=== PATIENT | female | born 1990 | race Caucasian/White ===

== ENCOUNTER → 2016-05-25 | Outpatient (CLI) | payer BC ==
[2016-05-25 17:37] LABS: FREE T4 0.97 NG/DL (0.76-1.46)
== END ==
LOC: M WUC 12:06
PROVIDERS: ATTEND Physician Assistant Medical
DX: F41.9 Anxiety disorder, unspecified (principal)

== ENCOUNTER → 2016-06-05 | Outpatient (REF) | payer BC | LOC: M LAB REF 09:00 | PROVIDERS: ATTEND Emergency Medicine | DX: D22.5 Melanocytic nevi of trunk (principal) ==

== ENCOUNTER → 2017-10-14 | Outpatient (REF) | payer BC ==
[2017-10-14 21:25] LABS: CHLAMYDIA DNA AMPLIFICATION NEGATIVE (NEGATIVE); GC DNA AMPLIFICATION NEGATIVE (NEGATIVE)
[2017-10-19 14:16] LABS: HPV HYBRID CAPTURE II Negative (Negative)
== END ==
LOC: M LAB REF 16:58
DX: R30.0 Dysuria (principal); R10.2 Pelvic and perineal pain
CPT/HCPCS: 87186

== ENCOUNTER → 2017-12-16 | Outpatient (CLI) | payer BC | LOC: M RAD 06:06 | DX: Z32.01 Encounter for pregnancy test, result positive (principal); N83.11 Corpus luteum cyst of right ovary | CPT/HCPCS: 76801 ==

== ENCOUNTER → 2017-12-16 | Outpatient (REF) | payer BC ==
[2017-12-16 16:34] LABS: CONTROL LINE HCG INT CTR LINE PRESENT; HCG, SERUM QUALITATIVE POSITIVE (NEGATIVE)
[2017-12-16 16:46] LABS: HCG, SERUM QUANTITATIVE 638 MIU/ML
== END ==
LOC: M LAB REF 16:11
DX: Z32.00 Encounter for pregnancy test, result unknown (principal)
CPT/HCPCS: 84703

== ENCOUNTER → 2017-12-18 | Outpatient (CLI) | payer BC ==
[2017-12-18 14:03] LABS: HCG, SERUM QUANTITATIVE 1385 MIU/ML
== END ==
LOC: M LAB 12:46
DX: O36.80X0 Pregnancy with inconclusive fetal viability, not applicable or unspecified (principal)
CPT/HCPCS: 84702

== ENCOUNTER → 2017-12-22 | Outpatient (REF) | payer BC ==
[2017-12-22 19:50] LABS: HCG, SERUM QUANTITATIVE 3100 MIU/ML
== END ==
LOC: M LAB REF 17:24
DX: O36.80X0 Pregnancy with inconclusive fetal viability, not applicable or unspecified (principal)
CPT/HCPCS: 84702

== ENCOUNTER → 2018-02-17 | Outpatient (REF) | payer BC ==
[2018-02-17 18:38] LABS: HEMATOCRIT 37.8 % (36.0-47.0); HEMOGLOBIN 12.7 g/dl (12.0-15.5); MEAN CORPUSCULAR HGB CONC 33.6 g/dl (32.0-36.5); MEAN CORPUSCULAR VOLUME 95.2 fl (80.0-96.0); PLATELET COUNT, AUTOMATED 326 10^3/uL (150-450); RED BLOOD COUNT 3.97 10^6/uL (4.00-5.40); RED CELL DISTRIBUTION WIDTH 11.3 % (11.5-14.5)
[2018-02-18 13:53] LABS: HBsAg Prenatal NEGATIVE (NEGATIVE); HIV SCREEN CENTAUR SOURCE NEGATIVE (NEGATIVE); RUBELLA IgG QUALITATIVE IMMUNE (IMMUNE)
[2018-02-18 13:53] LABS: HEPATITIS C VIRUS ABY INDEX < 0.0 INDEX (<0.8)
== END ==
LOC: M LAB REF 16:51
DX: Z34.82 Encounter for supervision of other normal pregnancy, second trimester (principal); Z36.89 Encounter for other specified antenatal screening
CPT/HCPCS: 86803

== ENCOUNTER → 2018-04-07 | Outpatient (REF) | payer BC ==
[2018-04-07 14:21] LABS: AMORPHOUS SEDIMENT SMALL (NEGATIVE); APPEARANCE, URINE CLEAR (CLEAR); BACTERIA, URINE AUTO NEGATIVE (NEGATIVE); BILIRUBIN, URINE AUTO NEGATIVE (NEGATIVE); BLOOD, URINE BLOOD NEGATIVE (NEGATIVE); COLOR, URINE YELLOW (YELLOW); GLUCOSE, URINE (UA) AUTO NEGATIVE (NEGATIVE); KETONE, URINE AUTO NEGATIVE (NEGATIVE); LEUKOCYTE ESTERASE, URINE AUTO 3+ (NEGATIVE); MUCUS, URINE SMALL (NEGATIVE); NITRITE, URINE AUTO NEGATIVE (NEGATIVE); PROTEIN, URINE AUTO NEGATIVE (NEGATIVE); RBC, URINE AUTO 1 /HPF (0-3); SQUAMOUS EPITHELIAL CELL UR AU 2 /HPF (0-6); UROBILINOGEN, URINE AUTO 0.2 mg/dL (0.0-2.0); WBC, URINE AUTO 8 /HPF (0-3)
== END ==
LOC: M LAB REF 13:35
DX: N39.0 Urinary tract infection, site not specified (principal)
CPT/HCPCS: 81001

== ENCOUNTER → 2018-06-03 | Outpatient (CLI) | payer BC ==
[2018-06-03 16:49] LABS: HEMATOCRIT 36.9 % (36.0-47.0); HEMOGLOBIN 12.4 g/dl (12.0-15.5); MEAN CORPUSCULAR HEMOGLOBIN 32.7 pg (27.0-33.0); MEAN CORPUSCULAR HGB CONC 33.6 g/dl (32.0-36.5); MEAN CORPUSCULAR VOLUME 97.4 fl (80.0-96.0); PLATELET COUNT, AUTOMATED 321 10^3/uL (150-450); RED BLOOD COUNT 3.79 10^6/uL (4.00-5.40); WHITE BLOOD COUNT 10.9 10^3/uL (4.0-10.0)
== END ==
LOC: M LAB 14:36
PROVIDERS: ATTEND Obstetrics & Gynecology
DX: Z34.02 Encounter for supervision of normal first pregnancy, second trimester (principal); Z3A.00 Weeks of gestation of pregnancy not specified

== ENCOUNTER → 2018-07-22 | Outpatient (REF) | payer BC | LOC: M LAB REF 14:11 | PROVIDERS: ATTEND Nurse Practitioner Women's Health | DX: Z34.83 Encounter for supervision of other normal pregnancy, third trimester (principal); Z36.85 Encounter for antenatal screening for Streptococcus B ==

== ENCOUNTER 2018-08-19 00:08 | Inpatient (IN) | payer BC ==
[~2018-08-19] VITALS: Ht 152.4 cm; Wt 62.3 kg
[2018-08-19] VITALS (35 sets, daily range): BP systolic 89–146; BP diastolic 50–102
[2018-08-19 01:41] LABS: HEMATOCRIT 38.3 % (36.0-47.0); MEAN CORPUSCULAR HEMOGLOBIN 32.5 pg (27.0-33.0); MEAN CORPUSCULAR HGB CONC 33.9 g/dl (32.0-36.5); MEAN CORPUSCULAR VOLUME 95.8 fl (80.0-96.0); PLATELET COUNT, AUTOMATED 287 10^3/uL (150-450); WHITE BLOOD COUNT 12.5 10^3/uL (4.0-10.0)
[2018-08-19] MEDS ORDERED: LACTATED RINGER'S 1000 ML IV STA (02:01)
[2018-08-19] MEDS ORDERED: LR 1,000 ML IV SCH (02:01)
[2018-08-19] MEDS ORDERED: PRENTAB9 PO (03:28)
[2018-08-19] MEDS ORDERED: OXYTOCIN 30 UNITS IN 0.9% NaCl 500ML IV BAG (J2590) As Ordered ONE (03:29)
[2018-08-19] MEDS ORDERED: OXYTOCIN DRIP 30 UNITS in APPROPRIATE DILUENT 1 EA IV SCH ×2 (03:30→10:19)
[2018-08-19] MEDS ORDERED: FENTANYL 2MCG/ML ROPIVACAINE 0.2% IN 0.9% NACL 100ML IVBAG As Ordered ONE (04:32)
[2018-08-19] MEDS ORDERED: ePHEDrine SULFATE 25 MG/5 ML(5MG/ML) SYRINGE As Ordered ONE (06:03)
[2018-08-19] MEDS: ePHEDrine SULFATE 25 MG/5 ML(5MG/ML) SYRINGE IV PRN ×3 (06:06→08:30)
[2018-08-19] MEDS ORDERED: ONDANSETRON 4MG/2ML VIAL (J2405) IV PRN (06:15)
[2018-08-19] MEDS ORDERED: EPIDURAL/PCA KEYS XX PRN (06:15)
[2018-08-19] MEDS ORDERED: LACTATED RINGER'S 1000 ML IV PRN ×2 (06:15→09:45)
[2018-08-19] MEDS ORDERED: REFRIGERATOR IV KEYS XX PRN (06:15)
[2018-08-19] MEDS ORDERED: diphenhydrAMINE INJ 50MG/ML VIAL (J1200) IV PRN (06:15)
[2018-08-19] MEDS ORDERED: FENTANYL/ROPIVACAINE/NACL BAG 100 ML EPIDURAL SCH (06:15)
[2018-08-19] MEDS ORDERED: NALOXONE INJ 0.4 MG/1 ML VIAL (J2310) IV PRN (06:15)
[2018-08-19] MEDS ORDERED: EPIDURAL COMMENT XX SCH (06:15)
--- NOTE | 2018-08-19 07:12 | HPE ---
DATE OF ADMISSION: 08/19/2018 Guerda is a 27-year-old female 1, para 0 with an estimated date of confinement (EDC) of 08/25/2018, estimated gestational age (EGA) 39-2/7 weeks gestation who presented to labor and delivery with complaint of gross rupture of membranes. Upon evaluation in labor and delivery she was found to be grossly ruptured with irregular contractions. No bleeding. Her records were reviewed which were essentially unremarkable. She did initiate care approximately 7 weeks gestation. Her lab blood type is O positive. Rubella immune. Hepatitis negative. HIV negative. GC and chlamydia negative. 1-hour sugar testing was within normal limits. Her Group B Streptococcus (GBS) is negative. PAST MEDICAL HISTORY: Denies. PAST SURGICAL HISTORY: The patient had vaginal surgery at age 12. SOCIAL HISTORY: She is an [employer]. She denies any alcohol, drug or cigarette smoking. FAMILY HISTORY: Significant for breast cancer. Cardiovascular disease. MEDICATIONS: - vitamins ALLERGIES: No known drug allergies. PHYSICAL EXAMINATION: Normal-appearing female in no acute distress. Abdomen: Soft, nontender, nondistended. Extremities: No clubbing, cyanosis or edema. Vaginal exam: Gross rupture of membranes. Cervix is 1 cm, 60%, fetus at -2 station, vertex position. Tracing reviewed category 1 tracing with irregular contractions. ASSESSMENT: Intrauterine at 39-2/7 weeks gestation with gross rupture of membranes. PLAN: Admit to labor and delivery. Routine labs sent. Patient counseled extensively. A decision was made to proceed with Pitocin induction. Pain management also discussed. The patient opts for an epidural. Will continue to monitor. Anticipate delivery.
[2018-08-19] MEDS ORDERED: ePHEDrine SULFATE 25 MG/5 ML(5MG/ML) SYRINGE IV PRN (09:45)
[2018-08-19 10:24] LABS: CORD GAS ABE V -3.3; CORD GAS HCO3 V 22.4 MEQ/L; CORD GAS O2 SAT V 77.4 %; CORD GAS PCO2 V 42.3 mmHg; CORD GAS PH V 7.341 UNITS; CORD GAS PO2 V 35.1 mmHg; CORD GAS SBC V 21.2 MEQ/L; CORD GAS TCO2 V 23.7 MEQ/L
[2018-08-19 10:26] LABS: CORD GAS ABE A -5.9; CORD GAS HCO3 A 23.3 MEQ/L; CORD GAS O2 SAT A 55.4 %; CORD GAS PCO2 A 60.7 mmHg; CORD GAS PH A 7.202 UNITS; CORD GAS PO2 A 27.6 mmHg; CORD GAS SBC A 18.7 MEQ/L; CORD GAS TCO2 A 25.2 MEQ/L
[2018-08-19] MEDS ORDERED: ANUSOL HC CREAM 30GM TOP PRN (10:30)
[2018-08-19] MEDS ORDERED: DIBUCAINE 1% OINTMENT 30GM TOP PRN (10:30)
[2018-08-19] MEDS ORDERED: RHOGAM 300 MCG (1500 IU) INJ (J2790) IM SCH (10:30)
[2018-08-19] MEDS ORDERED: MEASLES,MUMPS,RUBELLA VACCINE INJ (MMR-II) (90707) SC SCH (10:30)
[2018-08-19] MEDS ORDERED: ACETAMINOPHEN 500 MG TAB PO PRN (10:30)
[2018-08-19] MEDS ORDERED: DOCUSATE SODIUM 100 MG CAP PO PRN (10:30)
[2018-08-19] MEDS ORDERED: METHYLERGONOVINE MALEATE 0.2 MG TAB PO PRN (10:30)
--- NOTE | 2018-08-19 10:50 | DN ---
DATE OF SERVICE: 08/19/2018 Guerda is a 27-year-old female 1, para 0 who is admitted at 39-2/7 weeks gestation with spontaneous rupture of membranes. She underwent Pitocin induction, progressed to fully dilated after an epidural. She then pushed and delivered a live female infant in left occiput anterior position. Apgars 9 and 9, birthweight 6 pounds 5 ounces. Placenta delivered spontaneously intact. Three-vessel cord. Perineum, vagina, cervix inspected. No laceration noted. Estimated blood loss 250 mL. Both mother and baby in stable condition.
[2018-08-19] MEDS ORDERED: SLF 3 ML SYR IV PRN (11:45)
[2018-08-19] MEDS: SLF 3 ML SYR IV SCH ×2 (14:30→21:47)
[2018-08-19] MEDS: PRENATAL VITAMINS CHEWABLE TABLET PO SCH (19:30)
[2018-08-19] MEDS: IBUPROFEN 800 MG TAB PO PRN (19:48)
[2018-08-20 05:21] VITALS: BP 107/55
[2018-08-20] MEDS: SLF 3 ML SYR IV SCH ×3 (06:00→20:29)
[2018-08-20] MEDS ORDERED: METHYLERGONOVINE MALEATE 0.2 MG/ML VIAL (J2210) As Ordered ONE (07:42)
[2018-08-20] MEDS: PRENATAL VITAMINS CHEWABLE TABLET PO SCH (08:41)
[2018-08-20] MEDS: IBUPROFEN 800 MG TAB PO PRN (08:41)
[2018-08-20 18:05] VITALS: BP 110/59
[2018-08-21 06:00] VITALS: BP 115/55
[2018-08-21] MEDS: SLF 3 ML SYR IV SCH (06:00)
[2018-08-21] MEDS: PRENATAL VITAMINS CHEWABLE TABLET PO SCH (09:39)
[2018-08-21] MEDS ORDERED: ACET-683 PO (14:31)
[2018-08-21] MEDS ORDERED: IBUP1TAB7 PO (14:31)
== END 2018-08-21 14:15 | disposition home or self-care (01) | DRG 560 ==
LOC: M LDO 00:08 → M LDI 01:00 → M OBS 12:26
PROVIDERS: ADMIT Obstetrics & Gynecology; ATTEND Obstetrics & Gynecology
PROC: 10E0XZZ Delivery of Products of Conception, External Approach (ICD-10-PCS; principal; 2018-08-19)
DX: O80 Encounter for full-term uncomplicated delivery (principal); Z37.0 Single live birth; Z3A.39 39 weeks gestation of pregnancy

== ENCOUNTER → 2018-12-08 | Outpatient (REF) | payer BC, MEDICAID ==
[~2018-12-08] MED LIST: ACET-683 PO; IBUP1TAB7 PO; PRENTAB9 PO
[2018-12-08 17:57] LABS: BASO # 0.1 10^3/uL (0.0-0.2); EOS # 0.1 10^3/uL (0.0-0.50); EOS % 2.1 % (0.0-3.0); HEMATOCRIT 41.1 % (36.0-47.0); HEMOGLOBIN 13.8 g/dl (12.0-15.5); LYMPH # 2.3 10^3/uL (1.5-6.5); LYMPH % 36.5 % (24.0-44.0); MEAN CORPUSCULAR HGB CONC 33.6 g/dl (32.0-36.5); MEAN CORPUSCULAR VOLUME 98.3 fl (80.0-96.0); MONO # 0.7 10^3/uL (0.0-0.8); MONO % 10.8 % (0.0-5.0); NEUTROPHILS # 3.1 10^3/uL (1.8-7.7); NEUTROPHILS % 49.4 % (36.0-66.0); PLATELET COUNT, AUTOMATED 368 10^3/uL (150-450); RED BLOOD COUNT 4.18 10^6/uL (4.00-5.40); WHITE BLOOD COUNT 6.2 10^3/uL (4.0-10.0)
[2018-12-08 18:47] LABS: ALBUMIN 4.1 GM/DL (3.2-5.2); ALT/SGPT 28 U/L (12-78); BILIRUBIN,TOTAL 0.4 MG/DL (0.2-1.0); BLOOD UREA NITROGEN 8 MG/DL (7-18); CALCIUM LEVEL 9.4 MG/DL (8.5-10.1); CARBON DIOXIDE LEVEL 29 MEQ/L (21-32); CHLORIDE LEVEL 105 MEQ/L (98-107); CREATININE FOR GFR 0.76 MG/DL (0.55-1.30); GLOMERULAR FILTRATION RATE > 60.0 (>60); GLUCOSE, FASTING 77 MG/DL (70-100); HCG, SERUM QUANTITATIVE < 1.0 MIU/ML; IRON (FE) 82 UG/DL (50-170); PERCENT SATURATION 21.3 % (13.2-45.0); POTASSIUM SERUM 3.6 MEQ/L (3.5-5.1); SODIUM LEVEL 141 MEQ/L (136-145); TOTAL IRON BINDING CAPACITY 385 UG/DL (250-450); TOTAL PROTEIN 7.8 GM/DL (6.4-8.2)
== END ==
LOC: M LAB REF 17:38
PROVIDERS: ATTEND Physician Assistant Medical
DX: R42 Dizziness and giddiness (principal); R53.83 Other fatigue

== ENCOUNTER → 2019-02-08 | Outpatient (REF) | payer BC, OTHER | LOC: M LAB REF 12:47 | PROVIDERS: ATTEND Family Medicine | DX: N39.0 Urinary tract infection, site not specified (principal) ==

== ENCOUNTER → 2019-02-14 | Outpatient (REF) | payer BC, OTHER ==
[2019-02-14 15:34] LABS: CHLAMYDIA DNA AMPLIFICATION NEGATIVE (NEGATIVE); GC DNA AMPLIFICATION NEGATIVE (NEGATIVE)
[2019-02-16 14:07] LABS: HPV HYBRID CAPTURE II Negative (Negative)
== END ==
LOC: M LAB REF 12:41
PROVIDERS: ATTEND Physician Assistant
DX: Z12.4 Encounter for screening for malignant neoplasm of cervix (principal)
CPT/HCPCS: 87070; 87491; 87591; 87624; G0123

== ENCOUNTER → 2019-03-28 | Outpatient (REF) | payer BC, OTHER | LOC: M LAB REF 13:16 | PROVIDERS: ATTEND Physician Assistant | DX: R30.0 Dysuria (principal) ==

== ENCOUNTER → 2019-04-13 | Outpatient (REF) | payer BC, OTHER ==
[2019-04-16 00:06] LABS: HERPES ZOSTER, VARICELLA IgG 1518 index (Immune >165); HERPES ZOSTER, VARICELLA IgM <0.91 index (0.00-0.90)
== END ==
LOC: M LABDRAW1 18:24
PROVIDERS: ATTEND Physician Assistant Medical
DX: Z13.89 Encounter for screening for other disorder (principal)

== ENCOUNTER → 2019-09-15 | Outpatient (CLI) | payer BC, OTHER | LOC: M LABSMTC 13:39 | PROVIDERS: ATTEND Family Medicine | DX: Z11.59 Encounter for screening for other viral diseases (principal); Z20.828 Contact with and (suspected) exposure to other viral communicable diseases ==

== ENCOUNTER → 2019-11-30 | Outpatient (REF) | payer BC, OTHER ==
[2019-11-30 11:41] LABS: BASO # 0.1 10^3/uL (0.0-0.2); BASO % 0.7 % (0.0-1.0); EOS # 0.3 10^3/uL (0.0-0.5); EOS % 3.6 % (0.0-3.0); HEMATOCRIT 38.4 % (36.0-47.0); HEMOGLOBIN 12.7 g/dl (12.0-15.5); LYMPH # 2.2 10^3/uL (1.5-5.0); LYMPH % 27.2 % (24.0-44.0); MEAN CORPUSCULAR HEMOGLOBIN 30.8 pg (27.0-33.0); MEAN CORPUSCULAR HGB CONC 33.1 g/dl (32.0-36.5); MEAN CORPUSCULAR VOLUME 93.2 fl (80.0-96.0); MONO # 0.8 10^3/uL (0.0-0.8); MONO % 9.1 % (0.0-5.0); NEUTROPHILS # 4.9 10^3/uL (1.5-8.5); PLATELET COUNT, AUTOMATED 439 10^3/uL (150-450); RED BLOOD COUNT 4.12 10^6/uL (4.00-5.40); WHITE BLOOD COUNT 8.2 10^3/uL (4.0-10.0)
== END ==
LOC: M LAB REF 11:15
PROVIDERS: ATTEND Obstetrics & Gynecology
DX: Z30.09 Encounter for other general counseling and advice on contraception (principal)

== ENCOUNTER → 2020-05-22 | Outpatient (CLI) | payer OTHER ==
[2020-05-24 14:12] LABS: HERPES ZOSTER, VARICELLA IgG 2163 index (Immune >165); HERPES ZOSTER, VARICELLA IgM <0.91 index (0.00-0.90); MUMPS VIRUS IgG ANTIBODY 16.5 AU/mL (Immune >10.9); RUBEOLA IgG ANTIBODY 24.3 AU/mL (Immune >16.4)
== END ==
LOC: M LAB 16:36
PROVIDERS: ATTEND Physician Assistant Medical
DX: Z01.84 Encounter for antibody response examination (principal)

== ENCOUNTER → 2021-12-31 | Outpatient (REF) | payer BC, MEDICAID ==
[2021-12-31 12:50] LABS: HEMATOCRIT 37.4 % (36.0-47.0); HEMOGLOBIN 12.5 g/dl (12.0-15.5); MEAN CORPUSCULAR HEMOGLOBIN 32.1 pg (27.0-33.0); MEAN CORPUSCULAR HGB CONC 33.4 g/dl (32.0-36.5); MEAN CORPUSCULAR VOLUME 95.9 fl (80.0-96.0); PLATELET COUNT, AUTOMATED 372 10^3/uL (150-450); WHITE BLOOD COUNT 9.9 10^3/uL (4.0-10.0)
[2021-12-31 14:04] LABS: HCG, SERUM QUANTITATIVE 520 MIU/ML
[2021-12-31 15:01] LABS: HEPATITIS B SURFACE ANTIGEN NEGATIVE (NEGATIVE)
[2021-12-31 15:29] LABS: HEPATITIS C VIRUS ABY INDEX 0.1 INDEX (<0.8); HIV 1&2 SCREEN CENTAUR NEGATIVE (NEGATIVE)
== END ==
LOC: M LAB REF 12:10
PROVIDERS: ATTEND Obstetrics & Gynecology
DX: Z32.01 Encounter for pregnancy test, result positive (principal); O36.80X0 Pregnancy with inconclusive fetal viability, not applicable or unspecified

== ENCOUNTER → 2022-01-02 | Outpatient (REF) | payer BC, MEDICAID | LOC: M LAB REF 15:02 | PROVIDERS: ATTEND Obstetrics & Gynecology | DX: O36.80X0 Pregnancy with inconclusive fetal viability, not applicable or unspecified (principal) ==

== ENCOUNTER → 2022-04-21 | Outpatient (CLI) | payer BC, MEDICAID | LOC: M WHC 07:11 | PROVIDERS: ATTEND Obstetrics & Gynecology | DX: Z36.3 Encounter for antenatal screening for malformations (principal); Z3A.20 20 weeks gestation of pregnancy ==

== ENCOUNTER → 2022-06-03 | Outpatient (CLI) | payer BC ==
[2022-06-03 12:50] LABS: HEMOGLOBIN 11.8 g/dl (12.0-15.5); MEAN CORPUSCULAR HEMOGLOBIN 31.2 pg (27.0-33.0); MEAN CORPUSCULAR HGB CONC 31.9 g/dl (32.0-36.5); MEAN CORPUSCULAR VOLUME 97.9 fl (80.0-96.0); PLATELET COUNT, AUTOMATED 318 10^3/uL (150-450); RED BLOOD COUNT 3.78 10^6/uL (4.00-5.40); WHITE BLOOD COUNT 10.9 10^3/uL (4.0-10.0)
== END ==
LOC: M LAB 11:03
PROVIDERS: ATTEND Obstetrics & Gynecology
DX: Z34.82 Encounter for supervision of other normal pregnancy, second trimester (principal)

== ENCOUNTER → 2022-08-11 | Outpatient (REF) | payer BC | LOC: M LAB REF 12:41 | PROVIDERS: ATTEND Obstetrics & Gynecology | DX: Z36.85 Encounter for antenatal screening for Streptococcus B (principal) ==

== ENCOUNTER 2022-09-04 00:39 | Inpatient (IN) | payer BC ==
[2022-09-04] VITALS (19 sets, daily range): BP systolic 104–148; BP diastolic 54–78
[~2022-09-04] VITALS: Ht 149.9 cm; Wt 64.3 kg
[2022-09-04] MEDS ORDERED: OMEP40CA4 PO (00:52)
[2022-09-04] MEDS ORDERED: LR 1,000 ML IV SCH (01:50)
[2022-09-04] MEDS ORDERED: LIDOCAINE 1% MDV 20ML VIAL INFIL PRN (01:50)
[2022-09-04] MEDS ORDERED: OXYTOCIN DRIP 30 UNITS in IV 1 EA IV PRN (01:50)
[2022-09-04 02:11] LABS: HEMATOCRIT 33.9 % (36.0-47.0); HEMOGLOBIN 10.9 g/dl (12.0-15.5); MEAN CORPUSCULAR HEMOGLOBIN 29.4 pg (27.0-33.0); MEAN CORPUSCULAR HGB CONC 32.2 g/dl (32.0-36.5); MEAN CORPUSCULAR VOLUME 91.4 fl (80.0-96.0); PLATELET COUNT, AUTOMATED 367 10^3/uL (150-450); RED BLOOD COUNT 3.71 10^6/uL (4.00-5.40); WHITE BLOOD COUNT 18.2 10^3/uL (4.0-10.0)
[2022-09-04] MEDS ORDERED: LR 500 ML IV PRN (02:20)
[2022-09-04] MEDS ORDERED: NALOXONE INJ 0.4MG/1ML VIAL IV PRN (02:20)
[2022-09-04] MEDS ORDERED: diphenhydrAMINE 50MG/ML VIAL IV PRN (02:20)
[2022-09-04] MEDS ORDERED: FENTANYL/ROPIVACAINE/NACL BAG 100 ML EPIDURAL SCH (02:20)
[2022-09-04] MEDS ORDERED: EPIDURAL/PCA KEYS XX PRN (02:20)
[2022-09-04] MEDS ORDERED: ONDANSETRON 4MG 2ML VIAL IV PRN (02:20)
[2022-09-04] MEDS ORDERED: ePHEDrine SULFATE 25 MG/5 ML(5MG/ML) SYRINGE IVP PRN (02:20)
[2022-09-04] MEDS ORDERED: REFLB XX ONE (02:31)
[2022-09-04] MEDS ORDERED: IBUPROFEN 600MG TAB PO PRN (05:05)
[2022-09-04] MEDS ORDERED: DIBUCAINE 1% OINTMENT 30GM TOP PRN (05:05)
[2022-09-04] MEDS ORDERED: ACETAMINOPHEN TAB 650MG DOSE (2X325MG) PO PRN (05:05)
[2022-09-04] MEDS ORDERED: DOCUSATE SODIUM 100MG CAPSULE PO PRN (05:05)
[2022-09-04] MEDS ORDERED: LIDOCAINE 1% MDV 20ML VIAL INFIL ONE (05:05)
[2022-09-04] MEDS ORDERED: ACETAMINOPHEN 500 MG TAB PO PRN (05:05)
[2022-09-04] MEDS ORDERED: RHOGAM 300MCG (1500IU) INJ IM SCH (05:05)
[2022-09-04] MEDS ORDERED: METHYLERGONOVINE MALEATE 0.2 MG TAB PO PRN (05:05)
[2022-09-04] MEDS ORDERED: HOME MED LIST COMPLETE! XX SCH (05:45)
[2022-09-04] MEDS: PRENATAL VITAMINS CHEWABLE TABLET PO SCH (08:04)
[2022-09-04] MEDS: IBUPROFEN 800 MG TAB PO PRN ×2 (12:53→23:37)
[2022-09-05] MEDS ORDERED: BOOSTRIX VACCINE (TETANUS/DIPHTH/ACEL. PERTUSSIS) 0.5ML SYR IM.IMMUN ONE (09:00)
[2022-09-05] MEDS: PRENATAL VITAMINS CHEWABLE TABLET PO SCH (09:56)
[2022-09-05] MEDS ORDERED: COLA100C5 PO (10:44)
[2022-09-05] MEDS ORDERED: ACET-683 PO (10:44)
[2022-09-05] MEDS ORDERED: IBUP-1022 PO (10:44)
[2022-09-06] MEDS ORDERED: MEASLES,MUMPS,RUBELLA VACCINE INJ (MMR-II) SC.IMMUN ONE (09:00)
== END 2022-09-05 13:13 | disposition home or self-care (01) | DRG 560 ==
LOC: M LDO 00:39 → M LDI 01:24 → M OBS 07:40
PROVIDERS: ADMIT Specialist; ATTEND Specialist
PROC: 10E0XZZ Delivery of Products of Conception, External Approach (ICD-10-PCS; principal; 2022-09-04)
PROC: 10907ZC Drainage of Amniotic Fluid, Therapeutic from Products of Conception, Via Natural or Artificial Opening (ICD-10-PCS; 2022-09-04)
DX: O69.81X0 Labor and delivery complicated by cord around neck, without compression, not applicable or unspecified (principal); Z3A.40 40 weeks gestation of pregnancy; Z37.0 Single live birth

== ENCOUNTER → 2025-01-16 | Outpatient (CLI) | payer BC ==
[~2025-01-16] MED LIST changes: +COLA100C5 PO; +IBUP600T42 PO; +OMEP40CA4 PO
[2025-01-16 12:42] LABS: BASO # 0.1 10^3/uL (0.0-0.2); BASO % 0.9 % (0.0-1.0); EOS # 0.2 10^3/uL (0.0-0.5); EOS % 3.5 % (0.0-3.0); LYMPH # 2.3 10^3/uL (1.5-5.0); LYMPH % 34.2 % (24.0-44.0); MONO # 0.7 10^3/uL (0.0-0.8); MONO % 9.9 % (2.0-8.0); NEUTROPHILS # 3.4 10^3/uL (1.5-8.5); NEUTROPHILS % 51.2 % (36.0-66.0); PLATELET COUNT, AUTOMATED 348 10^3/uL (150-450)
[2025-01-16 13:02] LABS: TOTAL 25(OH) VITAMIN D 36.1 NG/ML (20.0-100.0)
[2025-01-16 13:03] LABS: FREE T4 1.25 NG/DL (0.89-1.76)
[2025-01-16 13:05] LABS: ALT/SGPT 25 U/L (7.0-40); AST/SGOT 24 U/L (<34); CALCIUM LEVEL 9.7 MG/DL (8.5-10.1); CARBON DIOXIDE LEVEL 27 MMOL/L (20-31); CHLORIDE LEVEL 105 MMOL/L (98-107); CHOLESTEROL LEVEL 226 MG/DL (<200); CHOLESTEROL RISK RATIO 3.13 (<5); CREATININE FOR GFR 0.65 MG/DL (0.55-1.30); GLOMERULAR FILTRATION RATE > 90.0 (>60); LDL CHOLESTEROL 135.2 MG/DL (<100); NON-HDL-C 153.8 MG/DL; POTASSIUM SERUM 4.4 MMOL/L (3.5-5.1); SODIUM LEVEL 142 MMOL/L (136-145); TRIGLYCERIDES LEVEL 93 MG/DL (<150)
== END ==
LOC: M WUC 09:28
PROVIDERS: ATTEND Nurse Practitioner Family
DX: Z00.00 Encounter for general adult medical examination without abnormal findings (principal); F41.1 Generalized anxiety disorder; R53.83 Other fatigue